=== PATIENT | male | born 1995 | race Caucasian/White ===

== ENCOUNTER 2025-10-22 14:26 | Outpatient (AMB) | payer BC, SELFPAY ==
--- NOTE | 2025-10-22 14:27 | MHC.PC.OV ---
Vital Signs 10/22/25 14:29 Height 5 ft 4.75 in Weight 159 lb BMI 26.7 BP 130/84 Blood Pressure Location Lt brachial Position Sitting Respiration 16 Pulse 102 H Pulse Source Pulse Oximeter Temp 97.3 F Temp Source Temporal Artery Scan Pulse Oximetry (%) 97 Oxygen Delivery Method Room Air Intake Visit Reasons: routine, reestablish care and physical Room Inspector Required: No Accompanied by: Self / Same As Patient Allergies gluten Adverse Reaction (Intermediate, Verified 10/22/25 14:50) Abdominal Pain Medication List - Last Reconciled 10/22/25 by Traci Wright MD wzjfblywlh-wmigksndjfwdv-shnl 50-325-40 mg 2 tabs PO TID PRN dicyclomine 10 mg PO TID PRN magnesium oxide 400 mg PO DAILY omeprazole 20 mg PO DAILY Tobacco use date assessed: 10/22/25 Dental Screening Dental Screen Date: 10/22/25 Did you have a dental visit in the last 12 months?: Yes Did you have a dental problem in the last 6 months where you did not have access to dental care?: No Was dental information given to patient?: Patient has dentist HPI HPI Comments History of Present Illness Details The patient is a 29 year old male presenting for an annual physical examination. Irritable Bowel Syndrome: The patient reports that the irritable bowel syndrome is generally under control. A few weeks ago, the patient experienced a three-week flare-up involving the whole muscular system after accidentally consuming nvb-dwajop-sgrm pizza. The patient manages the condition by adhering to a gluten and dairy-free diet and uses dicyclomine as needed for flares. Migraine: The patient has a history of migraines, which are effectively managed with as-needed fioricet. Tremor and Motor Skill Change: The patient is concerned about a perceived change in his fine motor skills. Patient has been hypervigilant because mother was recently diagnosed with Parkinson's. The patient reports losing the use of the hands if magnesium supplements are missed for two days, or when experiencing anxiety or stress. Stress specifically triggers a loss of coordination, with the left hand being more affected, though hand strength remains intact. Had some neurological testing done at [facility] including A brain MRI in February 2025 that was normal. Also had EEG study. Will obtain results. Erectile Dysfunction: The patient reports recent trouble with maintaining an erection, although achieving one is not an issue. No dysuria, urinary hesitancy. Social History: - Exercise: The patient is very active, going to the gym three days a week, running 5Ks or 10Ks weekly, and averaging 12,000-15,000 steps daily before dedicated exercise. - Nutrition: The patient follows a gluten- and dairy-free diet, with a high intake of protein (chicken, hamburger, eggs) and vegetables, consuming approximately 2,100 calories per day. - Weight Management: Weight has recently decreased from 160-165 lbs to under 160 lbs, which is attributed to increased aerobic exercise. 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 1. Little interest or pleasure in doing things: not at all 2. Feeling down, depressed, or hopeless: not at all 3. Trouble falling or staying asleep, or sleeping too much: not at all 4. Feeling tired or having little energy: not at all 5. Poor appetite or overeating: not at all 6. Feeling bad about yourself - or that you are a failure or have let yourself or your family down: not at all 7. Trouble concentrating on things, such as reading the newspaper or watching television: not at all 8. Moving or speaking so slowly that other people could have noticed. Or the opposite - being so fidgety or restless that you have been moving around a lot more than usual: not at all 9. Thoughts that you would be better off or of hurting yourself in some way: not at all Total score: 0 Depression Screening Interpretation: Negative Depression Screening Done: Yes 04186 - PHQ-9 Billing: Yes Source: Developed by Drs. Hao Myers, Cynthia Chacon, Matthew Marin and colleagues, with an educational cayetano from [employer] AUDIT C Alcohol Use Questionnaire (AUDIT-C) 1. How often do you have a drink containing alcohol?: Monthly or less 2. How many drinks containing alcohol do you have on a typical day when you are drinking?: 3 or 4 3. How often do you have six or more drinks on one occasion?: Less than monthly Total Score: 3 Review of Systems Narrative Review of Systems - Constitutional: per hpi - Psychiatric: Denies symptoms of depression, with a PHQ-9 score of 0. - Gastrointestinal: Reports that IBS is generally under control. - Neurological: Reports history of migraines and a recent subjective decline in fine motor skills. - Integumentary: Reports brittle nails that crack and peel easily. - Genitourinary: per hpi Physical exam (Primary Care) Vital Signs: Last Vital Signs Temp 97.3 F 10/22/25 14:29 Pulse 102 H 10/22/25 14:29 Resp 16 10/22/25 14:29 BP 130/84 10/22/25 14:29 Pulse Ox 97 10/22/25 14:29 Oxygen Delivery Method Room Air 10/22/25 14:29 BMI result Body Mass Index 26.7 Tobacco/Smoking Status: Tobacco use Status Tobacco use date assessed 10/22/25 10/22/25 14:31 Patient Tobacco Use Status Never used Tobacco 10/22/25 14:37 e-Cigarette/Vaping Use Never Used 10/22/25 14:37 PHQ-9: PHQ-9 Score PHQ-9: Total score 0 10/22/25 14:51 Depression Screening Interpretation: Negative Narrative Physical Exam - Vitals: Blood pressure is 130/84 mmHg. Pulse is 88 bpm on repeat measure. - Gen: NAD - HEENT: External auditory canals are clear bilaterally. Oropharynx is clear without erythema. - Cardiovascular: Regular rate and rhythm. - Pulmonary: Lungs are clear to auscultation bilaterally. - Abdomen: Soft, non-distended, and non-tender to palpation. Bowel sounds are normoactive. - Extremities: Trace pedal edema is noted. - Neurological: On exam today, the patient demonstrates a slight tremor in the outstretched hands, greater on the left. Hand side show entertainer strength is good bilaterally. Rapid alternating movements are intact. Coding Level of Care Code Est Pt Prev Care 18-39y(71481) Complex visit Add On G2211 Diagnoses Irritable bowel syndrome, unspecified type K58.9 Irritable bowel syndrome type: unspecified Routine medical exam Z00.00 Tremors of nervous system R25.1 Additional Codes PHQ-9 - 66460 - PHQ-9 Billing: Yes ([id number]) Assessment & Plan Assessment & Plan (1) Irritable bowel syndrome: Code(s): K58.9 - Irritable bowel syndrome, unspecified Category: Medical Qualifiers: Irritable bowel syndrome type: unspecified Qualified Code(s): K58.9 - Irritable bowel syndrome, unspecified (2) Routine medical exam: Code(s): Z00.00 - Encounter for general adult medical examination without abnormal findings Category: Medical (3) Tremors of nervous system: Code(s): R25.1 - Tremor, unspecified Category: Medical Plan Assessment and Plan 1. Annual Physical Examination The patient is a 29-year-old individual presenting for a health maintenance visit. The focus is on preventative care, addressing chronic conditions, and evaluating new concerns. The patient is active with a healthy diet and has achieved recent weight loss through increased aerobic activity. 2. Tremor and Motor Skill Change The patient presents with a history of intermittent loss of fine motor control and hand use, which is triggered by stress and missed doses of magnesium. A prior workup including a brain MRI and EEG was normal. The differential includes metabolic disturbances, vitamin deficiencies, or a primary neurological condition. A comprehensive lab panel will be ordered to assess for deficiencies in B vitamins (including thiamine), folic acid, iron, and magnesium, as well as a thyroid panel. A referral for an EMG will be placed. A neurology referral will be considered pending these results. 3. Erectile Dysfunction The workup will begin with ruling out common metabolic and hormonal causes. Fasting blood work will include testosterone, cortisol, and a metabolic panel to screen for diabetes. Pending lab results, a referral to urology will be considered for further evaluation and management. 4. Irritable Bowel Syndrome The patient's IBS is chronic but stable and well-managed with a gluten- and dairy-free diet. A refill for dicyclomine will be provided for as-needed use during flares. 5. Migraine This is a chronic issue that is well-controlled with as-needed fioricet 6. Trace Pedal Edema The patient was advised to use compression socks for support and to minimize swelling. 7. Brittle Nails This symptom will be investigated as part of the broader workup for nutritional deficiencies . Plan - Medications: Sent refills for Butalbital and Dicyclomine to the patient's pharmacy. - Labs: Ordered comprehensive fasting blood work to include a liver panel, cholesterol, thyroid panel, B-complex vitamins (including thiamine), folic acid, iron, magnesium, testosterone, and cortisol. - Referrals: Will place a referral for an EMG to evaluate neuromuscular function for the patient's tremor and coordination issues. A referral to Urology will also be considered for erectile dysfunction pending lab results. - Patient education: Advised the patient on the use of compression socks for pedal edema. - Follow up in 3 months Discussion Notes I had a detailed discussion with the patient regarding the workup for the new and neurological symptoms. Patient Instructions - Please go for your fasting blood work. You will need to avoid eating or drinking anything besides water for 8 to 10 hours before the test. It is best to go first thing in the morning for the most accurate cortisol level. - You will receive a call to schedule an EMG test, which will check the electrical signals in your muscles. - For the swelling in your feet, you can wear compression socks during the day. - Continue with your current diet and exercise routine. Orders: Orders Magnesium Today K58.9 - Irritable bowel syndrome, unspecified, L60.3 - Nail dystrophy, R25.1 - Tremor, unspecified, R29.898 - Other symptoms and signs involving the musculoskeletal system TSH reflex Free T4 Today K58.9 - Irritable bowel syndrome, unspecified, L60.3 - Nail dystrophy, R25.1 - Tremor, unspecified, R29.898 - Other symptoms and signs involving the musculoskeletal system Lipid Panel Today K58.9 - Irritable bowel syndrome, unspecified, L60.3 - Nail dystrophy, R25.1 - Tremor, unspecified, R29.898 - Other symptoms and signs involving the musculoskeletal system Ferritin Today K58.9 - Irritable bowel syndrome, unspecified, L60.3 - Nail dystrophy, R25.1 - Tremor, unspecified, R29.898 - Other symptoms and signs involving the musculoskeletal system IRON PROFILE Today K58.9 - Irritable bowel syndrome, unspecified, L60.3 - Nail dystrophy, R25.1 - Tremor, unspecified, R29.898 - Other symptoms and signs involving the musculoskeletal system Testosterone, Free/Total Today N52.9 - Male erectile dysfunction, unspecified Vitamin B12 Today K58.9 - Irritable bowel syndrome, unspecified, L60.3 - Nail dystrophy, R25.1 - Tremor, unspecified, R29.898 - Other symptoms and signs involving the musculoskeletal system Vitamin D 25-OH Total Today K58.9 - Irritable bowel syndrome, unspecified, L60.3 - Nail dystrophy, R25.1 - Tremor, unspecified, R29.898 - Other symptoms and signs involving the musculoskeletal system Complete Blood Count Auto Diff Today K58.9 - Irritable bowel syndrome, unspecified, L60.3 - Nail dystrophy, R25.1 - Tremor, unspecified, R29.898 - Other symptoms and signs involving the musculoskeletal system Comprehensive Met. Panel Today K58.9 - Irritable bowel syndrome, unspecified, L60.3 - Nail dystrophy, R25.1 - Tremor, unspecified, R29.898 - Other symptoms and signs involving the musculoskeletal system Vitamin B1 Today K58.9 - Irritable bowel syndrome, unspecified, L60.3 - Nail dystrophy, R25.1 - Tremor, unspecified, R29.898 - Other symptoms and signs involving the musculoskeletal system Folate Today K58.9 - Irritable bowel syndrome, unspecified, L60.3 - Nail dystrophy, R25.1 - Tremor, unspecified, R29.898 - Other symptoms and signs involving the musculoskeletal system Cortisol Random Today N52.9 - Male erectile dysfunction, unspecified NE electromyogram (EMG) Today R25.1 - Tremor, unspecified, R29.898 - Other symptoms and signs involving the musculoskeletal system Medications: New gvhanzdxiu-vedhhgawmgvzw-sthn 50-325-40 mg 2 tabs PO TID PRN 30 tabs 1RF headache dicyclomine 10 mg PO TID PRN 30 caps 11RF abdominal cramps
[2025-10-22 14:29] VITALS: BP 130/84; PULSE 102; RESP 16; TEMP 36.3; O2SAT 97; BMI 26.7
== END 2025-10-22 15:25 | disposition home or self-care (01) ==
LOC: HO.HMCHD 14:27
PROVIDERS: PCP Internal Medicine; Visit Provider Internal Medicine
DX: Z00.00 Encounter for general adult medical examination without abnormal findings (principal); K58.9 Irritable bowel syndrome, unspecified; R25.1 Tremor, unspecified

== ENCOUNTER → 2025-10-22 14:26 | Outpatient (BNVA) | payer BC, SELFPAY | PROVIDERS: PCP Internal Medicine; Visit Provider Internal Medicine | DX: Z00.00 Encounter for general adult medical examination without abnormal findings (principal); K58.9 Irritable bowel syndrome, unspecified; R25.1 Tremor, unspecified | CPT/HCPCS: 96127 ==

== ENCOUNTER 2025-10-29 15:18 | Emergency (ER) | payer BC, SELFPAY ==
--- NOTE | ~2025-10-29 | US_ITS ---
CLINICAL HISTORY: upper abdominal pain. US abdomen limited Comparison: None provided Findings: Echogenic polyp in the gallbladder wall measures 4 mm. Borderline gallbladder wall thickening measures 4-5 mm thickness. Portions of the gallbladder obscured. Additional echogenicity in the partially imaged neck of the gallbladder concerning for small stone and/or stones. No definite pericholecystic fluid at this time. Sonographic Last's sign is not elicited by the technologist. Imaged CBD measures 5 mm diameter. No right upper quadrant ascites or right pleural effusion in the yosax-sr-drxl. Majority of the liver, pancreas, and right kidney are obscured. Expected IVC, main portal vein, and aorta obscured. IMPRESSION: 1. Borderline gallbladder wall thickening with 4 mm gallbladder wall polyp and likely small cholelithiasis. 2. Imaged CBD is nondilated. This document has been electronically signed by: Efraín Hi MD on 10/29/2025 22:21:26
[2025-10-29 15:38] VITALS: BP 135/79; PULSE 82; RESP 18; TEMP 36.5; O2SAT 99; BMI 27.0
--- NOTE | 2025-10-29 15:41 | ED.GENADULT ---
HPI - General Adult General Chief complaint: Abdominal Pain Stated complaint: upper abd pain Time Seen by Provider: 10/29/25 21:28 Source: patient Mode of arrival: ambulatory Limitations: no limitations History of Present Illness ED Provider: DR. Kay HPI narrative: 29-year-old male came in for evaluation of epigastric /right upper quadrant abdominal pain that is started earlier today patient had a history nonspecific pancreatitis in the past and he was concern of another episode of pancreatitis, no history of alcohol use, no history of intra-abdominal surgery, patient currently have no abdominal pain, no clear aggravating factor or relieving factor, no other associated symptoms of fever, chills, nausea, or vomiting. No dysuria, no frequency urination, able to have a bowel movement and passing gas. Related Data Home Medications ?Medication ?Instructions ?Recorded ?Confirmed magnesium oxide 400 mg (241.3 mg 400 mg PO DAILY 10/22/25 10/22/25 magnesium) tablet omeprazole 20 mg capsule,delayed 20 mg PO DAILY 10/22/25 10/22/25 release Previous Rx's ?Medication ?Instructions ?Recorded arcpthfvxu-godeowszlgyvd-qhjrvrgm 2 tab PO TID PRN headache #30 tabs 10/22/25 50 mg-325 mg-40 mg tablet dicyclomine 10 mg capsule 10 mg PO TID PRN abdominal cramps 10/22/25 #30 caps Allergies Allergy/AdvReac Type Severity Reaction Status Date / Time gluten AdvReac Intermediate Abdominal Verified 10/29/25 15:42 Pain PMFSH Past Medical History Medical History (Updated 10/30/25 @ 00:01 by Rio Doherty) Tremors of nervous system Routine medical exam Irritable bowel syndrome ADHD Hepatic steatosis Family History Family History (Updated 10/22/25 @ 13:01 by Traci Wright MD) Other Colon cancer Mixed hyperlipidemia Parkinson's disease Primary hypertension Prostate cancer Social History Social History Housing: House Patient Tobacco Use Status: Never used Tobacco e-Cigarette/Vaping Use: Never Used service: No Current occupational status: employed 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 Labs ordered Reevaluation(s) Reevaluation #1: 29-year-old male came in with epigastric pain, no Last's sign, equivocal ultrasound result for cholelithiasis, normal labs otherwise. No acute pancreatitis with normal lipase. Patient feels no abdominal no chest pain now. Time: 22:57 Medical Decision Making Differential Diagnosis Differential Diagnoses: The differential diagnosis associated with the presentation includes ( Acute pancreatitis, acute cholecystitis, cholelithiasis, gastritis, ACS, electrolyte derangement, severe anemia.) Admission/Observation Consideration of admission/observation: Escalation of care including admission/observation considered Lab Data MDM Lab Attestation statement: I reviewed the patient's lab results. 10/29/25 16:01 10/29/25 16:01 Labs: Lab Results 10/29/25 Range/Units 16:01 WBC 6.8 (4.8-10.8) X10*3/uL RBC 5.37 (4.60-5.80) X10*6/uL Hgb 16.2 (14.0-18.0) g/dl Hct 47.0 (42.0-52.0) % MCV 87.5 (80.0-98.0) fL MCH 30.2 (27.0-33.0) pg MCHC 34.5 (31.0-36.0) g/dl RDW 12.4 (11.0-16.0) % Plt Count 243 (160-400) X10*3/uL MPV 8.4 L (9.4-12.4) fL Immature Gran % (Auto) 0.3 (0.0-0.4) % Neut % (Auto) 65.4 (45-73) % Lymph % (Auto) 23.8 (20-40) % Charlton % (Auto) 8.7 (2-11) % Eos % (Auto) 1.2 (0-4) % Baso % (Auto) 0.6 (0-2) % Lymph # (Auto) 1.6 (1.2-4.9) X10*3/uL Charlton # (Auto) 0.6 (0.1-1.2) X10*3/uL Eos # (Auto) 0.1 (0.0-0.4) X10*3/uL Baso # (Auto) 0.0 (0.0-0.2) X10*3/uL Abs Immat Gran (auto) 0.02 (0.00-0.03) X10*3/uL Absolute Neuts (auto) 4.4 (2.0-8.3) x10*3/uL Absolute Nucleated RBC 0.000 (0.0-0.012) X10*3/uL Nucleated RBC % (auto) 0.0 (0.0-0.2) /100WBC Sodium 142 (135-145) mmol/L Potassium 3.8 (3.3-5.1) mmol/L Chloride 105 (96-108) mmol/L Carbon Dioxide 28 (22-29) mmol/L Anion Gap 13 (12-20) BUN 14 (9-16) mg/dL Creatinine 0.82 (0.5-1.4) mg/dL Estim Creat Clear Calc 118.3 Estimated GFR > 60 Random Glucose 90 (60-115) mg/dL Calcium 9.2 (8.4-10.2) mg/dL Total Bilirubin 1.0 (0.0-1.0) mg/dL AST 34 (5-37) U/L ALT 54 H (0-40) U/L Alkaline Phosphatase 49 (39-117) U/L Troponin I High Sens < 2.7 (<3.5-35.0) ng/L Total Protein 7.4 (6.5-8.0) g/dL Albumin 5.0 (3.5-5.0) g/dL Lipase 25 (8-78) U/L Urine Color Yellow Urine Appearance Clear Urine pH 7.5 (5.0-9.0) Ur Specific Hanson <= 1.005 (1.005-1.025) Urine Protein Negative (Neg-Trace) mg/dL Urine Glucose (UA) Negative (Negative) mg/dL Urine Ketones Negative (Negative) mg/dL Urine Blood Negative (Negative) Urine Nitrite Negative (Negative) Ur Leukocyte Esterase Negative (Negative) Independent Interpretation I performed an independent interpretation of an: Ultrasound ( Abdominal:. Borderline gallbladder wall thickening with 4 mm gallbladder wall polyp and likely small cholelithiasis. 2. Imaged CBD is nondilated.) Radiology Impression Discussion of test interpretation with radiology: I have reviewed the radiologist's reading. Discharge Plan Discharge Clinical Impression: Epigastric pain Patient Disposition: Home, Self-Care Instructions: Abdominal Pain (ED) Prescriptions: No Action magnesium oxide 400 mg (241.3 mg magnesium) tablet 400 mg PO DAILY omeprazole 20 mg capsule,delayed release(DR/EC) 20 mg PO DAILY skvgexihaj-iscnkwwlrufcq-nkqg 50-325-40 mg tablet 2 tab PO TID PRN (Reason: headache) Qty: 30 1RF dicyclomine 10 mg capsule 10 mg PO TID PRN (Reason: abdominal cramps) Qty: 30 11RF Referrals: Traci Wright MD [Primary Care Provider, Internal Medicine] Interventions: ED Discharge Assessment Last Done: 10/29/25 23:47 Discharge Date/Time: 10/29/25 23:54 Print Language: Tamazight
--- NOTE | 2025-10-29 15:43 | ECG_ITS ---
Test Reason : ADB PAIN Blood Pressure : */* mmHG Vent. Rate : 83 BPM Atrial Rate : 83 BPM P-R Int : 106 ms QRS Dur : 84 ms QT Int : 380 ms P-R-T Axes : 30 11 18 degrees QTcB Int : 446 ms Sinus rhythm with short MI Otherwise normal ECG No previous ECGs available Referred By: Generic ED Physician Electronically Signed By: DARRION MIRAMONTES MD
[2025-10-29 16:07] LABS: MANUAL DIFF FLAG NO
[2025-10-29 16:08] LABS: Hematocrit 47.0 % (42.0-52.0); Hemoglobin 16.2 g/dl (14.0-18.0); Imm Gran Abs Auto 0.02 X10*3/uL (0.00-0.03); Imm Gran Pct Auto 0.3 % (0.0-0.4); Lymphocytes Absolute Auto 1.6 X10*3/uL (1.2-4.9); Mean Corpuscular HGB Conc 34.5 g/dl (31.0-36.0); Mean Corpuscular Hemoglobin 30.2 pg (27.0-33.0); Mean Corpuscular Volume 87.5 fL (80.0-98.0); NRBC Abs Auto 0.000 X10*3/uL (0.0-0.012); NRBC Pct Auto 0.0 /100WBC (0.0-0.2); Platelet Count 243 X10*3/uL (160-400); Red Blood Count 5.37 X10*6/uL (4.60-5.80); White Blood Count 6.8 X10*3/uL (4.8-10.8)
[2025-10-29 16:10] LABS: Appearance Urine Clear; Glucose Urine UA Negative (Negative); PH 7.5 (5.0-9.0); Specific Gravity - Urine <= 1.005 (1.005-1.025)
[2025-10-29 16:22] LABS: Alanine Aminotransferase 54 U/L (0-40); Albumin Level 5.0 g/dL (3.5-5.0); Alkaline Phosphatase 49 U/L (39-117); Anion Gap 13 (12-20); Aspartate Amino Transferase 34 U/L (5-37); Blood Urea Nitrogen 14 mg/dL (9-16); Calcium 9.2 mg/dL (8.4-10.2); Carbon Dioxide 28 mmol/L (22-29); Chloride 105 mmol/L (96-108); Creatinine Clr Calc Pharmacy 118.3; Estimated Glomerular Filt Rate > 60; Lipase 25 U/L (8-78); Potassium 3.8 mmol/L (3.3-5.1); Sodium 142 mmol/L (135-145); Total Protein 7.4 g/dL (6.5-8.0)
[2025-10-29 17:39] LABS: Troponin-I High Sensitivity < 2.7 ng/L (<3.5-35.0)
[2025-10-29 20:03] VITALS: BP 116/79; PULSE 87; RESP 16; TEMP 36.8; O2SAT 96
[2025-10-29 23:47] VITALS: BP 137/78; PULSE 88; RESP 16; TEMP 36.3; O2SAT 96
== END 2025-10-29 23:54 | disposition home or self-care (01) ==
PROVIDERS: Physician Assistant; Emergency Provider Emergency Medicine; PCP Internal Medicine
DX: R10.13 Epigastric pain (principal); R10.11 Right upper quadrant pain
CPT/HCPCS: 36415; 76705; 80053; 81003; 83690; 84484; 85025; 93005; 99283; 99284

== ENCOUNTER → 2025-10-29 15:43 | Outpatient (BNV) | payer BC, SELFPAY | PROVIDERS: Emergency Provider Emergency Medicine; PCP Internal Medicine; Visit Provider Internal Medicine Cardiovascular Disease | DX: R10.13 Epigastric pain (principal) | CPT/HCPCS: 93010 ==

== ENCOUNTER → 2025-10-29 21:30 | Outpatient (BNV) | payer BC, SELFPAY | PROVIDERS: Emergency Provider Emergency Medicine; PCP Internal Medicine; Visit Provider Radiology Neuroradiology | DX: K82.4 Cholesterolosis of gallbladder (principal) | CPT/HCPCS: 76705 ==

== ENCOUNTER 2025-11-12 07:57 | Outpatient (REF) | payer BC, SELFPAY ==
--- NOTE | 2025-11-12 07:59 | EMG_ITS ---
Chief complaint: pain in bilateral arms Referred by: Traci Wright Procedure done: NCS and EMG of bilateral upper extremity Bilateral median and ulnar motor studies were performed. Bilateral median and ulnar mixed sensory, radial sensory, and median and lateral antecubital brachial sensory studies were performed and needle examination was performed. Findings: Nerve conduction studies did not reveal any significant abnormality. Needle examination revealed long duration tall polyphasic motor unit potential in left lower paraspinals bilateral deltoid triceps and extensor indicis. Impression: Bilateral, left more than right, mid to lower cervical radiculopathy Codin 63921 x2 MTDD
== END 2025-11-12 07:58 | disposition home or self-care (01) ==
LOC: HO.NEURO 07:57
PROVIDERS: PCP Internal Medicine; Visit Provider Internal Medicine
DX: R29.898 Other symptoms and signs involving the musculoskeletal system (principal); R25.1 Tremor, unspecified; M54.12 Radiculopathy, cervical region
CPT/HCPCS: 95886; 95913

== ENCOUNTER → 2025-11-12 07:59 | Outpatient (BNV) | payer BC, SELFPAY | PROVIDERS: PCP Internal Medicine; Visit Provider Psychiatry & Neurology Neurology | DX: R29.898 Other symptoms and signs involving the musculoskeletal system (principal); M54.12 Radiculopathy, cervical region | CPT/HCPCS: 95886; 95913 ==